=== PATIENT | female | born 1995 | race Caucasian/White ===

== ENCOUNTER → 2018-11-22 | Outpatient (CLI) | payer OTHER ==
[~2018-11-22] MED LIST: AMOXICILLIN500 MG PO; EES400 MG PO; MOTRIN400 MG PO
== END | disposition home or self-care (01) ==
LOC: LAB 16:07
DX: Z02.0 Encounter for examination for admission to educational institution (principal)

== ENCOUNTER → 2020-04-08 | Outpatient (CLI) | payer OTHER | END | disposition home or self-care (01) | LOC: RAD 15:18 | PROVIDERS: ATTEND Nurse Practitioner Family | DX: M41.86 Other forms of scoliosis, lumbar region (principal); M48.07 Spinal stenosis, lumbosacral region ==

== ENCOUNTER → 2022-09-15 | Outpatient (CLI) | payer BC | END | disposition home or self-care (01) | LOC: US 01:25 | PROVIDERS: ATTEND Nurse Practitioner Primary Care | DX: R10.2 Pelvic and perineal pain (principal) ==